=== PATIENT | female | born 1990 | race American Indian/Alaskan Native ===

== ENCOUNTER 2019-03-07 10:43 | Emergency (ER) | payer MEDICAID ==
[2019-03-07 10:50] VITALS: BP 111/60
--- NOTE | 2019-03-07 12:11 | Emergency Department Report ---
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 This is first preg. She had seat belt on and had to make a quick turn. It scared her and she wants to make sure her baby is ok. no vag bleed or dc. Anxious on arrival. ED Review of Systems ROS: Stated complaint: NOT FEELING WELL Other details as noted in HPI Comment: All other systems reviewed and negative ED Past Medical Hx - Past Medical History Previous Medical History?: No - Surgical History Past Surgical History?: No - Social History Smoking Status: Never Smoker Dysuria Exam - Exam General: Vital signs noted. No distress. Alert and acting appropriately. Exam: Yes Moist Mucous Membranes, No CVA Tenderness, No Abdominal Tenderness, No Rigidity or Guarding ED Course Vital Signs 03/07/19 10:47 Temperature 98.1 F Pulse Rate 77 Respiratory 18 Rate Blood Pressure 111/60 ED Medical Decision Making - Medical Decision Making FHT RATE 150BPM HEARD JUST UNDER UMBILICUS NO VAG BLEED NO VAG DC NO ABD PAIN NO DYSURIA NO BACK PAIN VSS DC HOME. SHE HAS OBGYN APPNT ON THU Vital Signs 03/07/19 10:47 Temperature 98.1 F Pulse Rate 77 Respiratory 18 Rate Blood Pressure 111/60 Critical care attestation.: If time is entered above; I have spent that time in minutes in the direct care of this critically ill patient, excluding procedure time. ED Disposition Clinical Impression: Disposition: DC-01 TO HOME OR SELFCARE Is pt being admited?: No Does the pt Need Aspirin: No Condition: Stable Additional Instructions: FOLLOW UP AT YOUR APPNT WED Referrals: MICHOACANO CLAYTON MD [Primary Care Provider] - 3-5 Days Time of Disposition: 12:25
== END 2019-03-07 12:25 | disposition home or self-care (01) ==
LOC: ED 10:43
DX: O26.892 Other specified pregnancy related conditions, second trimester (principal); R30.0 Dysuria; R10.32 Left lower quadrant pain; Z3A.19 19 weeks gestation of pregnancy
CPT/HCPCS: 99281